=== PATIENT | male | born 1990 | race Caucasian/White ===

== ENCOUNTER 2022-03-05 12:36 | Emergency (ER) | payer SELFPAY ==
[2022-03-05 13:50] LABS: Absolute Lymphocytes (CBC) 0.8 K/uL (0.7-4.9); Hematocrit 39.6 % (39.6-49.0); Lymphocytes % 16.1 % (15.3-44.8); MPV 8.4 fL (7.6-11.3); RBC Red Blood Cell Count 4.27 M/uL (4.33-5.43)
[2022-03-05 13:53] LABS: Protime INR 0.98
--- NOTE | 2022-03-05 14:07 | RAD REPORT ---
EXAM DESCRIPTION: US - Extrem Venous W Compress Lamont - 03/05/2022 1:52 pm CLINICAL HISTORY: Swelling COMPARISON: No comparisons TECHNIQUE: Real-time sonographic evaluation of the lower extremity deep venous systems was performed using color Doppler, grayscale, and compression. FINDINGS: Bilateral lower extremities. Normal compressibility, flow augmentation, phasic flow and spontaneous flow is identified in both the left and right lower extremity deep venous systems. No intraluminal filling defects seen. IMPRESSION: No DVT in either lower extremity.
[2022-03-05 14:09] LABS: Albumin 3.6 g/dL (3.4-5.0); Bilirubin Total 0.4 mg/dL (0.2-1.0); Potassium 3.8 mmol/L (3.5-5.1); Protein, Total 7.9 g/dL (6.4-8.2)
[2022-03-05 15:48] LABS: Barbiturates NEGATIVE (NEGATIVE); Benzodiazepines NEGATIVE (NEGATIVE); Cocaine NEGATIVE (NEGATIVE); METHAMPHETAM NEGATIVE (NEGATIVE); Methadone NEGATIVE (NEGATIVE); Opiates NEGATIVE (NEGATIVE); Phencyclidine NEGATIVE (NEGATIVE); THC Cannibis POSITIVE (NEGATIVE)
--- NOTE | 2022-03-05 16:31 | EDPHYS ---
Physician Documentation [facility] Name: Aurelio Potts Age: 31 yrs Sex: Male : 1990 Arrival Date: 03/05/2022 Time: 12:39 Bed 9 Private MD: ED Physician Yeison Avelar HPI: 03/05 13:16 This 31 yrs old Male presents to ER via Ambulatory with complaints of Leg Pain. pm1 13:16 The patient presents with pain, that is acute, swelling. The complaints affect the pm1 right leg and left leg. Context: The problem was sustained at home, resulted from an unknown cause, the patient can fully bear weight, the patient is able to ambulate, without difficulty. Onset: The symptoms/episode began/occurred 3 day(s) ago. Modifying factors: The symptoms are alleviated by elevating leg, the symptoms are aggravated by Scratches from his kitten. Associated signs and symptoms: Pertinent negatives calf tenderness, fever, numbness, tingling, vomiting. Treatment prior to arrival includes: no previous treatment. Severity of symptoms: in the emergency department the symptoms are actually worse. The patient has not experienced similar symptoms in the past. The patient has not recently seen a physician. Historical: - Allergies: 12:59 No Known Allergies; ss - Home Meds: 12:59 None [Active]; ss - PMHx: 12:59 None; ss - PSHx: 12:59 None; ss - Immunization history:: Adult Immunizations unknown. - Social history:: Smoking status: Patient denies any tobacco usage or history of. ROS: 13:16 Constitutional: Negative for fever, chills, and weight loss, Cardiovascular: Negative pm1 for chest pain, palpitations, and edema, Respiratory: Negative for shortness of breath, cough, wheezing, and pleuritic chest pain, Abdomen/GI: Negative for abdominal pain, nausea, vomiting, diarrhea, and constipation, MS/Extremity: Negative for injury and deformity. 13:16 Neuro: Negative for headache, weakness, numbness, tingling, and seizure. 13:16 Skin: Positive for rash, swelling, of the right leg and left leg. 13:16 All other systems are negative. Exam: 13:16 Constitutional: This is a well developed, well nourished patient who is awake, alert, pm1 and in no acute distress. Head/Face: Normocephalic, atraumatic. 13:16 Eyes: Exam is negative for acute changes, Periorbital structures: appear normal, Pupils: no acute changes, Extraocular movements: no acute changes. 13:16 ENT: Exam is negative for acute changes, Mouth: no acute changes, Lips: normal, moist, Oral mucosa: normal, pink and intact, moist. 13:16 Cardiovascular: Exam negative for acute changes, Rate: normal, Rhythm: regular, Pulses: no pulse deficits are appreciated, Heart sounds: normal. 13:16 Respiratory: Exam negative for acute changes, respiratory distress, shortness of breath. 13:16 Musculoskeletal/extremity: Extremities: noted in the right leg and left leg: There is no evidence of swelling. 13:16 Skin: Appearance: normal except for affected area, cellulitis, that is minimal, on the lateral aspect of left calf. 13:16 Neuro: Exam negative for acute changes, Orientation: is normal, Mentation: is normal, Motor: is normal, moves all fours. Vital Signs: 12:58 BP 144 / 62; Pulse 82; Resp 15; Temp 98.8(TE); Pulse Ox 100% on R/A; Weight 81.65 kg; ss Height 5 ft. 11 in. (180.34 cm); Pain 7/10; 12:58 Body Mass Index 25.10 (81.65 kg, 180.34 cm) ss MDM: 13:14 Patient medically screened. pm1 16:29 Data reviewed: vital signs. Data interpreted: Pulse oximetry: on room air is 100 %. pm1 Interpretation: normal. Counseling: I had a detailed discussion with the patient and/or guardian regarding: the historical points, exam findings, and any diagnostic results supporting the discharge/admit diagnosis, lab results, radiology results, the need for outpatient follow up, to return to the emergency department if symptoms worsen or persist or if there are any questions or concerns that arise at home. 03/05 13:14 Order name: CBC with Diff; Complete Time: 14:02 pm1 03/05 13:14 Order name: CMP; Complete Time: 14:25 pm1 03/05 13:14 Order name: PT-INR; Complete Time: 14:02 pm1 03/05 13:14 Order name: IV Saline Lock; Complete Time: 14:57 pm1 03/05 13:14 Order name: Extrem Venous W Compression Lamont US; Complete Time: 14:08 pm1 03/05 13:14 Order name: UDS; Complete Time: 16:08 pm1 03/05 13:14 Order name: Urine Dipstick-Ancillary (obtain specimen); Complete Time: 14:57 pm1 Administered Medications: No medications were administered Disposition: 18:28 Co-signature as Attending Physician, Yeison Avelar MD. rn Disposition Summary: 03/05/22 16:30 Discharge Ordered Location: Home pm1 Problem: new pm1 Symptoms: have improved pm1 Condition: Stable pm1 Diagnosis - Rash and other nonspecific skin eruption pm1 Followup: pm1 - With: Emergency Department - When: As needed - Reason: Worsening of condition Followup: pm1 - With: Private Physician - When: 2 - 3 days - Reason: Recheck today's complaints, Continuance of care, Re-evaluation by your physician Discharge Instructions: - Discharge Summary Sheet pm1 - Cat-Scratch Disease, Adult pm1 - Rash, Adult pm1 Forms: - Medication Reconciliation Form pm1 - Thank You Letter pm1 - Antibiotic Education pm1 - Prescription Opioid Use pm1 Prescriptions: - Zithromax Z-Maykel 250 mg Oral Tablet - take 1 tablet by ORAL route as directed for 5 days Day 1 - take two (2) tablets pm1 one time. Day 2, 3, 4 , 5 take one (1) tablet once daily.; 6 tablet; Refills: 0, Product Selection Permitted Signatures: Dispatcher [employer] EDYeison Cesar MD MD rn Smirch, Shelby, RN RN ss Marinas, Patrick, LO TELEVISION NEWS ANCHOR pm1 Corrections: (The following items were deleted from the chart) 13:00 12:59 Home Meds: Unable to obtain; ss ss
--- NOTE | 2022-03-05 16:31 | ER ---
Nurse's Notes [facility] Name: Aurelio Potts Age: 31 yrs Sex: Male : 1990 Arrival Date: 03/05/2022 Time: 12:39 Bed 9 Private MD: Diagnosis: Rash and other nonspecific skin eruption Presentation: 03/05 12:58 Chief complaint: Patient states: Bilateral leg pain and swelling that began 4 days ago. ss Pt states he feels like the same thing is starting with his arms now. Coronavirus screen: Client denies travel out of the [place] in the last 14 days. Ebola Screen: Patient denies exposure to infectious person. Patient denies travel to an Ebola-affected area in the 21 days before illness onset. Initial Sepsis Screen: Does the patient meet any 2 criteria? No. Patient's initial sepsis screen is negative. Does the patient have a suspected source of infection? No. Patient's initial sepsis screen is negative. Risk Assessment: Do you want to hurt yourself or someone else? Patient reports no desire to harm self or others. Onset of symptoms was March 01, 2022. 12:58 Method Of Arrival: Ambulatory ss 12:58 Acuity: ELIEZER 3 ss Triage Assessment: 17:04 General: Appears in no apparent distress. Behavior is calm. iw Historical: - Allergies: 12:59 No Known Allergies; ss - Home Meds: 12:59 None [Active]; ss - PMHx: 12:59 None; ss - PSHx: 12:59 None; ss - Immunization history:: Adult Immunizations unknown. - Social history:: Smoking status: Patient denies any tobacco usage or history of. Screenin:45 Abuse screen: Denies threats or abuse. Denies injuries from another. Nutritional iw screening: No deficits noted. Tuberculosis screening: No symptoms or risk factors identified. Fall Risk None identified. Assessment: 14:45 Reassessment: Patient appears in no apparent distress at this time. No changes from iw previously documented assessment. Patient and/or family updated on plan of care and expected duration. Pain level reassessed. Patient is alert, oriented x 3, equal unlabored respirations, skin warm/dry/pink. Vital Signs: 12:58 BP 144 / 62; Pulse 82; Resp 15; Temp 98.8(TE); Pulse Ox 100% on R/A; Weight 81.65 kg; Height 5 ft. 11 in. (180.34 cm); Pain 7/10; 12:58 Body Mass Index 25.10 (81.65 kg, 180.34 cm) ED Course: 12:39 Patient arrived in ED. rg4 12:59 Triage completed. 12:59 Arm band placed on right wrist. ss 13:07 Raimundo No NP is PHCP. pm1 13:07 Yeison Avelar MD is Attending Physician. pm1 13:54 Extrem Venous W Compression Lamont US In Process Unspecified. EDMS 14:45 Myra Flores, RN is Primary Nurse. iw 14:46 No provider procedures requiring assistance completed. iw 17:04 IV discontinued, intact, bleeding controlled, No redness/swelling at site. Pressure iw dressing applied. Administered Medications: No medications were administered Medication: 17:04 VIS not applicable for this client. iw Outcome: 16:30 Discharge ordered by MD. pm1 17:04 Discharged to home ambulatory, with family. iw 17:04 Condition: good 17:04 Discharge instructions given to patient, Instructed on discharge instructions, follow up and referral plans. medication usage, Demonstrated understanding of instructions, follow-up care, medications, Prescriptions given X 1. 17:04 Patient left the ED. iw Signatures: Dispatcher [employer] EDAZ Myra Flores, LUCIEN MCGRAW Jossy Willis RN RN Raimundo No NP HOT DIP PLATING SUPERVISOR pm1 Jeri Cho rg4 Corrections: (The following items were deleted from the chart) 13:00 12:59 Home Meds: Unable to obtain; [facility]
[2022-03-05] MEDS ORDERED: AZITHROMYCIN 250 MG TAB ONE (17:05)
[2022-03-05 17:09] VITALS: BP 144/62; TEMP 98.8; O2SAT 100
== END 2022-03-05 17:04 | disposition home or self-care (01) ==
LOC: ER 12:36
DX: R21 Rash and other nonspecific skin eruption (principal)
CPT/HCPCS: 36415; 80053; 80307; 85025; 85610; 93970; 99283

== ENCOUNTER → 2023-11-11 | Emergency (ER) | payer SELFPAY ==
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
[2023-11-11 14:06] LABS: Absolute Lymphocytes (CBC) 2.7 K/uL (0.7-4.9); Lymphocytes % 33.5 % (15.3-44.8); MCV 92.1 fL (80-100); MPV 7.5 fL (7.6-11.3); Platelets 455 thou/uL (152-406); RBC Red Blood Cell Count 4.89 M/uL (4.33-5.43)
[2023-11-11 14:12] LABS: ALT/SGPT 42 U/L (16-61); AST/SGOT 30 U/L (15-37); Albumin 3.6 g/dL (3.4-5.0); Alkaline Phosphatase 92 U/L (45-117); BUN Blood Urea Nitrogen 8 mg/dL (7-18); Bicarbonate 27 mEq/L (21-32); Bilirubin Direct 0.1 mg/dL (0-0.2); Bilirubin Indirect, Calculated 0.1 mg/dL (0.2-0.8); Bilirubin Total 0.2 mg/dL (0.2-1.0); Glomerular Filtration Rate 111 ml/min (=/>90); Glucose Level 100 mg/dL (74-106); Potassium 3.4 mEq/L (3.5-5.1); Protein, Total 8.7 g/dL (6.4-8.2); Sodium Level 142 mEq/L (136-145)
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
[2023-11-11 15:07] LABS: Barbiturates NEGATIVE (NEGATIVE); Benzodiazepines NEGATIVE (NEGATIVE); Cocaine NEGATIVE (NEGATIVE); METHAMPHETAM NEGATIVE (NEGATIVE); Methadone NEGATIVE (NEGATIVE); Opiates NEGATIVE (NEGATIVE); Phencyclidine NEGATIVE (NEGATIVE); THC Cannibis POSITIVE (NEGATIVE)
[2023-11-11 16:56] VITALS: BP 153/94; TEMP 98; O2SAT 97
[2023-11-11 18:15] LABS: Protime INR 0.87
[2023-11-11 18:33] LABS: Blood Morphology Comment NOT SEEN (NOT SEEN); Platelet Estimate INCR; Platelets, Giant PRESENT; White Blood Cell Scan OK (OK)
== END ==
LOC: ER 13:16
DX: F10.129 Alcohol abuse with intoxication, unspecified (principal)
CPT/HCPCS: 36415; 70450; 80048; 80076; 80143; 80179; 80307; 82077; 85025; 85610; 85730

== ENCOUNTER 2024-05-07 21:02 | Emergency (ER) | payer BC ==
[2024-05-07] MEDS ORDERED: MECLIZINE HCL 12.5 MG TAB ONE (21:46)
[2024-05-07] MEDS ORDERED: NA CHLORIDE 0.9% 1,000 ML ONE (21:46)
[2024-05-07 21:51] LABS: Absolute Basophils 0.1 K/uL (0-0.5); Absolute Eosinophils 0.1 K/uL (0-0.5); Absolute Lymphocytes (CBC) 1.7 K/uL (0.7-4.9); Absolute Monocytes 0.9 K/uL (0.1-1.3); Absolute Neutrophil 9.4 K/uL (1.8-8.0); Basophils % 0.8 % (0-1.3); Eosinophils % 0.7 % (0-4.4); Hematocrit 43.5 % (39.6-49.0); Hemoglobin 14.6 g/dL (13.6-17.9); Lymphocytes % 14.2 % (15.3-44.8); MCH 32.8 pg (27.0-35.0); MCHC 33.5 g/dL (32.0-36.0); MCV 97.8 fL (80-100); MPV 9.6 fL (7.6-11.3); Monocytes % 7.1 % (3.3-12.3); Neutrophils % 77.2 % (41.7-73.7); Platelets 156 thou/uL (152-406); RBC Red Blood Cell Count 4.44 M/uL (4.33-5.43); Red Cell Distribution Width 13.9 % (12.1-15.2)
[2024-05-07 22:22] LABS: ALT/SGPT 82 U/L (16-61); AST/SGOT 67 U/L (15-37); Albumin 3.7 g/dL (3.4-5.0); Albumin/Globulin Ratio 0.9 (1.1-1.8); Alkaline Phosphatase 60 U/L (45-117); Anion Gap 14.2 mEq/L (5.0-15.0); BUN Blood Urea Nitrogen 11 mg/dL (7-18); Bicarbonate 23 mEq/L (21-32); Bilirubin Total 0.3 mg/dL (0.2-1.0); Globulin 4.3 g/dL (2.3-3.5); Glomerular Filtration Rate 107 ml/min (=/>90); Glucose Level 100 mg/dL (74-106); NT PRO-BNP 9 pg/mL (<125); Potassium 3.2 mEq/L (3.5-5.1); Sodium Level 136 mEq/L (136-145); Troponin High Sensitivity 3.2 pg/mL (<58.9)
[2024-05-07 22:38] LABS: Bilirubin Direct < 0.2 mg/dL (0-0.2); Bilirubin Indirect, Calculated 0.1 mg/dL (0.2-0.8)
[2024-05-07 22:57] LABS: Barbiturates NEGATIVE (NEGATIVE); Benzodiazepines NEGATIVE (NEGATIVE); Cocaine NEGATIVE (NEGATIVE); METHAMPHETAM NEGATIVE (NEGATIVE); Methadone NEGATIVE (NEGATIVE); Opiates NEGATIVE (NEGATIVE); Phencyclidine NEGATIVE (NEGATIVE); THC Cannibis POSITIVE (NEGATIVE)
--- NOTE | 2024-05-08 00:25 | ER ---
Nurse's Notes [facility] Name: Aurelio Potts Age: 33 yrs Sex: Male : 1990 Arrival Date: 05/07/2024 Time: 21:02 Bed 13 Private MD: Diagnosis: Anxiety disorder, unspecified;Anxiety attack, cannabis use disorder, Paresthesias Presentation: 05/07 21:09 Chief complaint: Patient states: c/o cp x3 hours intermittent, also states he feels al5 dissociated from his body and feels like he is hallucinating but is aware of it. states he smoked a dab pen and had a glass of wine. Coronavirus screen: At this time, the client does not indicate any symptoms associated with coronavirus-19. Ebola Screen: No symptoms or risks identified at this time. Initial Sepsis Screen: Does the patient meet any 2 criteria? HR > 90 bpm. No. Patient's initial sepsis screen is negative. Does the patient have a suspected source of infection? No. Patient's initial sepsis screen is negative. Initial Sepsis Screen:. Risk Assessment: Do you want to hurt yourself or someone else? Patient reports no desire to harm self or others. Onset of symptoms was May 07, 2024. 21:09 Method Of Arrival: EMS: [facility] al5 21:09 Acuity: ELIEZER 2 al5 21:16 Care prior to arrival: IV initiated. 20 GA, in the right antecubital area. al5 Triage Assessment: 21:13 General: Appears in no apparent distress. Behavior is calm, cooperative. Pain: al5 Complains of pain in chest Pain currently is 6 out of 10 on a pain scale. EENT: No signs and/or symptoms were reported regarding the EENT system. Neuro: Level of Consciousness is awake, alert, obeys commands, Oriented to person, place, time, situation. Cardiovascular: Capillary refill < 3 seconds Patient's skin is warm and dry. Cardiovascular: Reports chest pain. Respiratory: Airway is patent Respiratory effort is even, unlabored, Respiratory pattern is regular, symmetrical. GI: No signs and/or symptoms were reported involving the gastrointestinal system. : No signs and/or symptoms were reported regarding the genitourinary system. Derm: Skin is intact, Skin is pink, warm \T\ dry. normal. Musculoskeletal: No signs and/or symptoms reported regarding the musculoskeletal system. Historical: - Allergies: 21:12 No Known Allergies; al5 - PMHx: 21:12 None; al5 - PSHx: 21:12 None; al5 - Immunization history:: Adult Immunizations up to date, Client reports having NOT received the Covid vaccine. - Infectious Disease History:: Denies. - Social history:: Smoking status: Patient denies any tobacco usage or history of. Patient uses marijuana. - Family history:: not pertinent. Screenin:15 [facility] ED Fall Risk Assessment (Adult) History of falling in the last 3 months, al5 including since admission No falls in past 3 months (0 pts) Confusion or Disorientation No (0 pts) Intoxicated or Sedated No (0 pts) Impaired Gait No (0 pts) Mobility Assist Device Used No (0 pt) Altered Elimination No (0 pt) Score/Fall Risk Level 0 - 2 = Low Risk Oriented to surroundings, Maintained a safe environment, Hourly rounding (assess needs \T\ fall precautionary measures) done. Abuse screen: Denies threats or abuse. Denies injuries from another. Nutritional screening: No deficits noted. Tuberculosis screening: No symptoms or risk factors identified. Vital Signs: 21:09 BP 158 / 99; Pulse 96; Resp 16; Temp 99.1; Pulse Ox 98% ; Weight 85.73 kg; Height 5 ft. al5 11 in. ; Pain 6/10; 21:15 BP 154 / 108; Pulse 94; Resp 18; Pulse Ox 98% on R/A; al5 21:30 BP 168 / 99; Pulse 101; Resp 18; Pulse Ox 97% on R/A; al5 21:45 BP 141 / 80; Pulse 89; Resp 18; Pulse Ox 94% on R/A; al5 22:00 BP 139 / 88; Pulse 92; Resp 18; Pulse Ox 94% on R/A; al5 23:00 BP 137 / 80; Pulse 89; Resp 18; Pulse Ox 96% on R/A; al5 05/08 00:00 BP 142 / 86; Pulse 89; Resp 18; Pulse Ox 94% on R/A; al5 05/07 21:09 Body Mass Index 26.36 (85.73 kg, 180.34 cm) al5 05/07 21:09 Pain Scale: Adult al5 [place] Coma Score: 00:37 Eye Response: spontaneous(4). Motor Response: obeys commands(6). Verbal Response: sp4 oriented(5). Total: 15. ED Course: 05/07 21:07 Patient arrived in ED. al5 21:09 Tash Moulton, RN is Primary Nurse. al5 21:12 Triage completed. al5 21:13 Patricio Warner MD is Attending Physician. sp4 21:14 Arm band placed on right wrist. Patient placed in the treatment room, on a stretcher. al5 21:14 Patient has correct armband on for positive identification. Call light in reach. Side al5 rails up X2. Provided Education on: processes and procedures. Client placed on continuous cardiac and pulse oximetry monitoring. NIBP monitoring applied. cafeteria monitor on. 21:15 No provider procedures requiring assistance completed. O2 via room air. al5 21:16 Maintain EMS IV. Dressing intact. Good blood return noted. Site clean \T\ dry. Gauge \T\ al 5 site: 20g rac. Flushed with 10 mL NS. 05/08 00:24 IV discontinued, intact, bleeding controlled, No redness/swelling at site. Pressure al5 dressing applied. Administered Medications: 05/07 21:29 Not Given (Physician Discretion): aspirinchewable tablet 324 mg PO once; 81 mg tablets sp4 x 4 21:44 Not Given (Physician Discretion): [id number] mg PO once sp4 21:54 Drug: NS 0.9% IV 1000 ml IV at 1 bolus Per protocol; 1000 mL bolus Route: IV; Rate: 1 al5 bolus; Site: right antecubital; 23:22 Follow up: Response: No adverse reaction; IV Status: Completed infusion; IV Intake: al5 1000ml 21:54 Drug: Meclizine PO 50 mg PO once Route: PO; al5 23:22 Follow up: Response: No adverse reaction; Anxiety unchanged al5 Medication: 21:15 VIS not applicable for this client. al5 Intake: 23:22 IV: 1000ml; Total: 1000ml. al5 Outcome: 05/08 00:25 Discharge ordered by . sp4 00:32 Discharged to home ambulatory, al5 00:32 Condition: good 00:32 Discharge instructions given to patient, Instructed on discharge instructions, follow up and referral plans. medication usage, Demonstrated understanding of instructions, follow-up care, medications, 00:32 Patient left the ED. al5 Signatures: Patricio Warner MD MD sp4 Tash Moulton RN RN al5 Corrections: (The following items were deleted from the chart) 05/07 21:16 21:16 Pain: Pain began al5 al5
--- NOTE | 2024-05-08 00:25 | EDPHYS ---
Physician Documentation [facility] Name: Aurelio Potts Age: 33 yrs Sex: Male : 1990 Arrival Date: 05/07/2024 Time: 21:02 Bed 13 Private MD: ED Physician Patricio Warner HPI: 05/07 21:13 This 33 yrs old Other Male presents to ER via EMS with complaints of Chest Pain, sp4 marijuana abuse. 05/08 00:37 Patient presents with acute anxiety attack , complaining of numbness and tingling in sp4 her arms complaining of also chest pain. Historical: - Allergies: 05/07 21:12 No Known Allergies; al5 - PMHx: 21:12 None; al5 - PSHx: 21:12 None; al5 - Immunization history:: Adult Immunizations up to date, Client reports having NOT received the Covid vaccine. - Infectious Disease History:: Denies. - Social history:: Smoking status: Patient denies any tobacco usage or history of. Patient uses marijuana. - Family history:: not pertinent. ROS: 05/08 00:37 Constitutional: Negative for fever, chills, and weight loss, anxiety, positive chest sp4 pain, positive marijuana abuse, positive numbness and tingling All other systems are negative, Exam: 00:37 Constitutional: This is a well developed, well nourished patient who is awake, alert, sp4 and in no acute distress. Head/Face: Normocephalic, atraumatic. Eyes: Pupils equal round and reactive to light, extra-ocular motions intact. Lids and lashes normal. Conjunctiva and sclera are not injected. Cornea within normal limits. Periorbital areas with no swelling, redness, or edema. ENT: Nares patent. No nasal discharge, no septal abnormalities noted. Tympanic membranes are normal and external auditory canals are clear. Oropharynx with no redness, swelling, or masses, exudates, or evidence of obstruction, uvula midline. Mucous membranes moist. Neck: Trachea midline, no thyromegaly or masses palpated, and no cervical lymphadenopathy. Supple, full range of motion without nuchal rigidity, or vertebral point tenderness. Chest/axilla: Normal chest wall appearance and motion. Nontender with no deformity. No lesions are appreciated. Cardiovascular: Regular rate and rhythm with a normal S1 and S2. No gallops, murmurs, or rubs. Normal PMI, no JVD. No pulse deficits. Respiratory: Lungs have equal breath sounds bilaterally, clear to auscultation and percussion. No rales, rhonchi or wheezes noted. No increased work of breathing, no retractions or nasal flaring. Abdomen/GI: Soft, with normal bowel sounds. No distension or tympany. No guarding or rebound. No evidence of tenderness throughout. Back: No spinal tenderness. No costovertebral tenderness. Skin: Warm, dry with normal turgor. Normal color with no rashes, no lesions, and no evidence of cellulitis. MS/ Extremity: Pulses equal, no cyanosis. Neurovascular intact. Full, normal range of motion. Neuro: Awake and alert, GCS 15, oriented to person, place, time, and situation. Cranial nerves II-XII grossly intact. Motor strength 5/5 in all extremities. Sensory grossly intact. Psych: Awake, alert, with orientation to person, place and time. Acutely anxious ,appears mild intoxication 07:11 ECG was reviewed by the Attending Physician. EKG at 2117 normal sinus rhythm rate sp4 98. Vital Signs: 05/07 21:09 BP 158 / 99; Pulse 96; Resp 16; Temp 99.1; Pulse Ox 98% ; Weight 85.73 kg; Height 5 ft. al5 11 in. ; Pain 6/10; 21:15 BP 154 / 108; Pulse 94; Resp 18; Pulse Ox 98% on R/A; al5 21:30 BP 168 / 99; Pulse 101; Resp 18; Pulse Ox 97% on R/A; al5 21:45 BP 141 / 80; Pulse 89; Resp 18; Pulse Ox 94% on R/A; al5 22:00 BP 139 / 88; Pulse 92; Resp 18; Pulse Ox 94% on R/A; al5 23:00 BP 137 / 80; Pulse 89; Resp 18; Pulse Ox 96% on R/A; al5 05/08 00:00 BP 142 / 86; Pulse 89; Resp 18; Pulse Ox 94% on R/A; al5 05/07 21:09 Body Mass Index 26.36 (85.73 kg, 180.34 cm) al5 05/07 21:09 Pain Scale: Adult al5 [place] Coma Score: 00:37 Eye Response: spontaneous(4). Motor Response: obeys commands(6). Verbal Response: sp4 oriented(5). Total: 15. MDM: 05/07 21:44 Patient medically screened. 4 05/08 00:46 Differential diagnosis: acute pericarditis, anxiety, chest wall pain, cholecystitis. sp4 HEART Score: History: Slightly Suspicious (0), ECG: Normal (0), Age: < or = 45 years (0), Risk Factors: No Risk Factors Known (0), Troponin: < or = 1 x Normal Limit (0), Total Score = 0. Data reviewed: vital signs, nurses notes, EMS record, lab test result(s), EKG. ED course: Stable for discharge home. Advised to stay away from marijuana consumption. 05/07 21:26 Order name: Basic Metabolic Panel; Complete Time: 00:16 [facility] 05/07 21:26 Order name: CBC with Diff; Complete Time: 00:16 [facility] 05/07 21:26 Order name: LFT's; Complete Time: 00:16 4 05/07 21:26 Order name: NT PRO-BNP; Complete Time: 00:16 4 05/07 21:26 Order name: Troponin HS; Complete Time: 00:16 4 05/07 22:28 Order name: Urine Drug Screen; Complete Time: 00:16 4 05/07 21:26 Order name: Cardiac monitoring; Complete Time: 21:35 4 05/07 21:26 Order name: EKG - Nurse/Tech; Complete Time: 21:35 [facility] 05/07 21:26 Order name: IV Saline Lock; Complete Time: 21:35 4 05/07 21:26 Order name: Labs collected and sent; Complete Time: 21:35 [facility] 05/07 21:26 Order name: O2 Per Protocol; Complete Time: 21:35 [facility] 05/07 21:26 Order name: O2 Sat Monitoring; Complete Time: 21:36 sp4 EC:11 Rate is 98 beats/min. Rhythm is regular, Normal Sinus Rhythm. QRS [place] is Normal. ME sp4 interval is normal. QRS interval is normal. QT interval is normal. No Q waves. T waves are Normal. No ST changes noted. Clinical impression: Normal ECG. Interpreted by me. Reviewed by me. Administered Medications: 05/07 21:29 Not Given (Physician Discretion): aspirinchewable tablet 324 mg PO once; 81 mg tablets sp4 x 4 21:44 Not Given (Physician Discretion): [id number] mg PO once sp4 21:54 Drug: NS 0.9% IV 1000 ml IV at 1 bolus Per protocol; 1000 mL bolus Route: IV; Rate: 1 al5 bolus; Site: right antecubital; 23:22 Follow up: Response: No adverse reaction; IV Status: Completed infusion; IV Intake: al5 1000ml 21:54 Drug: Meclizine PO 50 mg PO once Route: PO; al5 23:22 Follow up: Response: No adverse reaction; Anxiety unchanged al5 Disposition Summary: 05/08/24 00:25 Discharge Ordered Notes: Location: Home sp4 Problem: new sp4 Symptoms: have improved sp4 Condition: Stable sp4 Diagnosis - Anxiety disorder, unspecified sp4 - Anxiety attack, cannabis use disorder, Paresthesias sp4 Followup: sp4 - With: Private Physician - When: As needed - Reason: Discharge Instructions: - Discharge Summary Sheet sp4 - Cannabis Use Disorder sp4 Forms: - Patient Portal Instructions sp4 Prescriptions: - Meclizine 25 mg Oral tablet - take 1 tablet ORAL route every 8 hours As needed PRN anxiety; 30 tablet; sp4 Refills: 0, Product Selection Permitted Signatures: Dispatcher [employer] Patricio Lovett MD MD sp4 Tash Moulton RN RN al5
[2024-05-08 01:19] VITALS: TEMP 99.1
[2024-05-08 01:29] VITALS: BP 142/86; O2SAT 94
--- NOTE | 2024-05-09 12:38 | EKG ---
Test Date: 2024-05-07 Test Time: 21:17:02 [employer]: MEASUREMENT RESULTS: Intervals: Rate: 98 NC: 176 QRSD: 100 QT: 354 QTc: 451 [place]: P: 44 NC: 176 QRS: 20 T: 34 INTERPRETIVE STATEMENTS: Normal sinus rhythm Septal infarct, age undetermined Abnormal ECG Compared to ECG 12/23/2004 18:08:00 Myocardial infarct finding now present Sinus bradycardia no longer present Electronically Signed On 05-09-24 12:38:16 CDT by Musa Banda
== END 2024-05-08 00:32 | disposition home or self-care (01) ==
LOC: ER 21:02
DX: F41.0 Panic disorder [episodic paroxysmal anxiety] (principal); F12.988 Cannabis use, unspecified with other cannabis-induced disorder; R20.2 Paresthesia of skin
CPT/HCPCS: 93005; 85025; 80048; 36415; 80076; 84484; 83880; 80307; 96360; 99285; J8597; J7030